=== PATIENT | female | born 1995 | race Caucasian/White ===

== ENCOUNTER 2025-03-08 17:06 | Emergency (ER) | payer OTHER ==
[~2025-03-08] VITALS: Ht 154.9 cm; Wt 63.0 kg
[2025-03-08 17:22] VITALS: TEMP 36.9; O2SAT 99
[2025-03-08] MEDS ORDERED: IBUP-1455 MT (21:43)
[2025-03-08] MEDS ORDERED: METH-653 MT (21:43)
[2025-03-08] MEDS: METHOCARBAMOL 500MG TABLET PO ONE (21:57)
[2025-03-08] MEDS: IBUPROFEN 600MG TABLET PO ONE (21:58)
[2025-03-08 22:05] VITALS: BP 123/78; PULSE 70; RESP 18; O2SAT 100
== END 2025-03-08 22:08 | disposition home or self-care (01) ==
LOC: ER 17:06
DX: S20.219A Contusion of unspecified front wall of thorax, initial encounter (principal); R51.9 Headache, unspecified; M54.50 Low back pain, unspecified; V49.40XA Driver injured in collision with unspecified motor vehicles in traffic accident, initial encounter; Y92.410 Unspecified street and highway as the place of occurrence of the external cause; Y93.89 Activity, other specified; Y99.8 Other external cause status
CPT/HCPCS: 71045; 99283